=== PATIENT | female | born 1955 | race Caucasian/White ===

== ENCOUNTER 2025-04-26 12:51 | Inpatient (IN) | payer MEDICARE, SELFPAY ==
[2025-04-26] VITALS (10 sets, daily range): BP systolic 104–166; BP diastolic 48–107; BMI 36.2
[2025-04-26 08:37] LABS: INR 1.84; PT 21.4 Sec (11.4-14.6)
[2025-04-26] MEDS: TYLENOL 650 MG PO ×2 (08:37→18:20)
[2025-04-26 08:38] LABS: APTT 31.1 Sec (23.4-35.0)
[2025-04-26 08:44] LABS: Hematocrit 27.0 % (37.0-47.0); Hemoglobin 7.7 g/dL (12.0-16.0); Mean Corp Hgb Conc. 28.5 g/dL (33.0-37.0); Mean Corpuscular Volume 71.8 fL (81.0-99.0); Platelet Count 349 10^3/uL (130-400); Red Cell Dist. Width 19.9 % (11.5-14.5)
--- NOTE | 2025-04-26 08:52 | ED.GENMED ---
History of Present Illness
General
Chief Complaint: Breathing Problem
Source: patient and family (Daughter)
Time Seen by Provider: 04/26/25 07:35
History of Present Illness
History of Present Illness:
70-year-old female shortness of breath with exertion. Has been going on for months. Initially felt to be secondary to anemia. Was admitted at [facility] and found to have an ulcer. Hemoglobin has gone from 6 to the 8 range. [place] somewhat improved at
that time. However shortness of breath has persisted and gotten worse. Had a repeat hemoglobin done yesterday that was 8+ and patient was advised to have reevaluation for symptoms.
Past History
Past History
ED Past Medical History: Arrthythmia, CVA, Hypercholesterolemia, Valvular disease and Other (Gastric ulcer)
ED Past Surgical History: Orthopedic
Review of Systems
Review of Systems
All Other Systems: Not applicable
Constitutional: Denies fever
Cardiac: Denies chest pain, palpitations or syncope
Phy Exam
Physical Exam
Physical Exam:
GENERAL: Alert and oriented in no apparent distress
EYE: Orbits normal.
NECK: Supple, no significant adenopathy.
ENT: Pharynx without erythema
CARDIAC: Regular rate and rhythm without any obvious murmurs.
LUNGS: No respiratory distress. A few crackles in the bases.
ABDOMEN: Soft, without focal tenderness or distention. Stool heme-negative
NEUROLOGICAL: Alert and oriented , grossly non-focal
SKIN: Warm and dry, no rash or lesion, no discoloration, skin intact.
MUSCULOSKELETAL: No edema,no deformity.Good color
PSYCH: Normal and appropriate interaction.
Scores
Heart Failure Risk
Heart Failure Risk Score: Yes
History of Stroke or TIA: No
History of intubation for respiratory distress: No
Heart rate on ED arrival >/= 110: No
SaO2 <90% on arrival on room air: No
HR >/=110 during 3min walk test (or too ill to perform test): Yes
ECG has acute ischemic changes: No
Urea >/=12mmol/L (BUN 33.6mg/dL): No
Serum CO2>/=35mmol/L: No
Troponin I or T elevated to MO Level (0.4mg/dL): No
NT-proBNP >/=5,000ng/L (5,000pg/ml): No
HF Risk Score: 2
Admission Status: MEDIUM RISK 9.2% Consider observation or discharge to home with homecare & f/u visit to PCP/Forensic Materials Engineer, or SNF for treatment
Course
Orders/Labs/Results
Orders:
Orders
04/26/25 07:57
Electrocardiogram (*1) Stat
Reason for Study: Other
Other Reason for Exam: chest pain
Cardiac Monitoring- Treatment ONCE
EKG- Treatment ONCE
IV Insert/Care/Rem.- Treatment PRN
CR Chest - 2 Views Urgent
Comment:
Reason For Exam: sob
Pulse Ox/cont/shift [RESP] Stat
Quantity: 1
04/26/25 08:20
Type+Screen Urgent
Complete Blood Count/With Diff Urgent
Comprehensive Metabolic Panel Urgent
NT-proBNP Urgent
PTT Urgent
Prothrombin Time Urgent
Troponin I Urgent
04/26/25 08:35
Acetaminophen [Tylenol] 650 mg .ROUTE .STK-MED ONE
04/26/25 08:37
Acetaminophen [Tylenol] 650 mg PO NOW STA
04/26/25 10:05
CT Chest PE Study Urgent
Comment:
Reason For Exam: Progressive shortness of breath
04/26/25 11:46
Furosemide [Lasix] 20 mg IV NOW STA
04/26/25 11:47
* Blood Bank Products Routine
Blood Bank Products: *Packed RBC Leuko (PRBC's
Quantity: 1
Transfuse Today: Yes
Reason: Anemia
IV Insert/Care/Rem.- Treatment PRN
Abnormal Lab Results
04/26/25
08:20
RBC 3.76 L 10^6/uL
(4.20-5.40)
Hgb 7.7 L g/dL
(12.0-16.0)
Hct 27.0 L %
(37.0-47.0)
MCV 71.8 L fL
(81.0-99.0)
MCH 20.5 L pg
(27.0-31.0)
MCHC 28.5 L g/dL
(33.0-37.0)
RDW 19.9 H %
(11.5-14.5)
Absolute Monos (auto) 0.7 H 10^3/uL
(0.1-0.6)
PT 21.4 H Sec
(11.4-14.6)
Chloride 109 H mmol/L
(98-107)
Glucose 122 H mg/dl
(70-99)
04/26/25 08:20
04/26/25 08:20
Vital Signs
Initial and Last Documented VS:
Initial Vital Signs
Temp Pulse Resp BP Pulse Ox
98.0 F 75 16 166/107 98
04/26/25 07:24 04/26/25 07:24 04/26/25 07:24 04/26/25 07:24 04/26/25 07:24
Last Documented Vital Signs
Temp Pulse Resp BP Pulse Ox
98.0 F 69 18 145/79 95
04/26/25 07:24 04/26/25 10:00 04/26/25 09:30 04/26/25 10:00 04/26/25 10:00
MDM/Problems Addressed
Differential Diagnosis Includes:
Significant shortness of breath with exertion. Possible etiologies would include the anemia although patient's breathing is worse than when she left the hospital and the hemoglobin is in the same ballpark range. Heart failure, valvular issue,
ischemic heart disease. Workup in progress.
*Radiology
Radiology exam reviewed: radiology read reviewed (Mild cephalization) and other (No pulmonary emboli. Vascular congestion. Coronary artery calcifications. Thyroid nodule)
*Pulse Oximetry
SaO2: 94
Oxygen Mode of Delivery: Room air
Patient hypoxic: no
*EKG
Interpreted by ED Provider?: Yes
Interpretation: normal
Comparison EKG: no comparison EKG present
Heart Rate: 71
Rate: normal
Rhythm: sinus
[place]: normal axis
Interval: normal interval
QRS Pattern: normal QRS
Ischemia: no ischemia
*Critical Care Note
Total Time (30-74mins, 75-104mins- exclusive of procedures): Not Applicable
Data Reviewed
Review of Other/Old Records Reveals: Labs and Testing
Update Note
Update Note:
Patient's anemia is in the same ballpark range initially when she left hand. At that time her shortness of breath was less severe. Progressive shortness of breath with exertion. Echo at the end of March was stable. Possibly this is all
related to the anemia however would also have to consider ischemic heart disease. Will get a CT to rule out PE with a subtherapeutic INR and admit for further workup
Patient will be admitted. Will give a dose of Lasix prior to a unit of blood. Consent was signed. Will give the blood slowly.
ED Attending Note
-
Portions of this chart may have been created with voice recognition software.� Occasional wrong word or��sound alike� substitutions may have occurred due to the inherent limitations of voice recognition software.
Discharge Plan
Departure
Patient Disposition: Admit
Date of Disposition: 04/26/25
Time of Disposition: 11:15
Presentation/result/management discussed w/ accepting MD/DO: Hospitalist
Discharge Problem:
Progressive dyspnea on exertion
Prescriptions:
No Action
warfarin 5 mg tablet
15 mg PO DAILY
omeprazole 20 mg capsule,delayed release(DR/EC)
40 mg PO BID
metoprolol succinate 25 mg tablet extended release 24 hr
12.5 mg PO BID
escitalopram oxalate 20 mg tablet
20 mg PO DAILY
bupropion HCl 300 mg tablet extended release 24 hr
300 mg PO DAILY
Theragen Tablet
1 tab PO DAILY
aspirin 81 mg Tablet,Delayed Release (Dr/Ec)
81 mg PO DAILY
Referrals:
UNKNOWN - PT DOES,NOT KNOW [Family Provider]
Interventions
Interventions:
*Risk Screen - Suicide Last Done: 04/26/25 07:24
*General Assessment Last Done: 04/26/25 07:43
*Neglect/Abuse Screening Last Done: 04/26/25 07:24
*ED- Fall Risk Assessment Last Done: 04/26/25 07:43
*ED COVID-19 Vaccine History Last Done: 04/26/25 07:43
*ED Influenza Vaccine History Last Done: 04/26/25 07:43
ED- Cardiac Assessment Last Done: 04/26/25 07:43
ED- Pulmonary Assessment Last Done: 04/26/25 07:43
Discharge Date and Time
Print Language: BULGARIAN
[2025-04-26 09:16] LABS: Troponin I 0.014 ng/ml
[2025-04-26 09:32] LABS: ALT (SGPT) 34 U/L (0-35); AST (SGOT) 34 U/L (14-36); Albumin 3.7 g/dl (3.5-5.0); Alkaline Phosphatase 78 U/L (38-126); Blood Urea Nitrogen 16 mg/dl (7-17); Calcium 8.9 mg/dl (8.4-10.2); Carbon Dioxide 26 mmol/L (22-30); Chloride 109 mmol/L (98-107); Glucose 122 mg/dl (70-99); Potassium 4.2 mmol/L (3.5-5.1); Sodium 137 mmol/L (135-145); Total Protein 6.8 g/dl (6.3-8.2); eGFR > 60.00
[2025-04-26 09:59] LABS: Nucleated Red Blood Cells % 0 %
[2025-04-26] MEDS: LASIX 20 MG IV ×2 (12:00→21:42)
--- NOTE | 2025-04-26 12:00 | HPS.HSE ---
Addendum entered and electronically signed by Samantha Nuñez MD 04/26/25 12:52:
*patient ordered for 1 unit PRBC in ER
Original Note:
Family Physician
-
Family Physician: NOT KNOW UNKNOWN - PT DOES
Chief Complaint
-
shortness of breath
History of Present Illness
Ms. Cathryn Russell is a 70 yo woman with hx mitral valve replacement (HUP), atrial fibrillation on Coumadin, GERD/ PUD, depression, recent work up of shortness of breath where found to be anemic (s/p admission with EGD showing bleeding ulcers)
represents to the ER with return of shortness of breath.
Patient started to have shortness of breath in December and was initially referred for a stress test but couldn't complete secondary to severe shortness of breath. She was referred for cath, but lab work at that time showed anemia with Hg 6. She was
admitted to [facility]. Prior to this hospitalization she noticed black stools once but thought it was from something she ate. She received PRBC and shortness of breath improved. EGD revealed bleeding ulcers. Patient states at time of discharge for
HUP her Hg was over 8 and she hasn't had repeat since. Over past several days her shortness of breath has returned. She reports seeing some bright red streaks on toilet paper but couldn't see any black stools or bloody BM in toilet. She has also
had return of mid epigastric pain. No nausea/vomiting/diarrhea.
No fevers/chills. She reports slight chest discomfort. Mild lower extremity swelling.
She is on Coumadin for afib. She does not take NSAIDS, no significant alcohol use.
Medical History
Past Medical History
Past Medical History: Reports Other (mitral valve replacement (HUP), atrial fibrillation on Coumadin, GERD/ PUD, depression)
Past Surgical History: Reports Cardiac (mitral valve replacement) and Orthopedic
Social History
Tobacco: Former Smoker
Family History
Family History: Not pertinent
Allergies / Home Medications
Allergies reflects when Allergies were last updated in [employer].
Home Medications with original date entered in [employer]
Allergy/Medication List:
Allergies
Allergy/AdvReac Type Severity Reaction Status Date / Time
aspartame Allergy Unknown Verified 04/26/25 07:33
Penicillins Allergy Shortness Verified 04/26/25 07:33
of Breath
Home Medications
aspirin 81 mg tablet,delayed release 81 mg PO DAILY 04/26/25
bupropion HCl 300 mg 24 hr tablet, extended release 300 mg PO DAILY 04/26/25
escitalopram oxalate 20 mg tablet 20 mg PO DAILY 04/26/25
metoprolol succinate 25 mg tablet,extended release 24 hr 12.5 mg PO BID 04/26/25
omeprazole 20 mg capsule,delayed release 40 mg PO BID 04/26/25
therapeutic multivitamin 1 tab PO DAILY 04/26/25
warfarin 5 mg tablet 15 mg PO DAILY 04/26/25
Review of Systems
-
History Source: Patient
A 12 point ROS was completed and negative except as noted: Yes
Physical Exam
Vital Signs
Vital Signs
Temp Pulse Resp BP Pulse Ox
98.0 F 69 18 145/79 95
04/26/25 07:24 04/26/25 10:00 04/26/25 09:30 04/26/25 10:00 04/26/25 10:00
Physical Exam
General: No Apparent Distress
HEENT: PERRLA
Respiratory: Clear; No Wheezes
Cardiac: S1/S2 and Murmur; No JVD
GI: Soft and Non Tender
Musculoskeletal: No Edema
Skin: Warm and Dry; No Rash
Psych: Calm
Laboratory Results
-
04/26/25 08:20
04/26/25 08:20
Laboratory Results
PT 21.4 Sec (11.4-14.6) H 04/26/25 08:20
INR 1.84 04/26/25 08:20
APTT 31.1 Sec (23.4-35.0) 04/26/25 08:20
Total Bilirubin 0.4 mg/dl (0.2-1.3) 04/26/25 08:20
AST 34 U/L (14-36) 04/26/25 08:20
ALT 34 U/L (0-35) 04/26/25 08:20
Alkaline Phosphatase 78 U/L (38-126) 04/26/25 08:20
Troponin I 0.014 ng/ml 04/26/25 08:20
Data Reviewed
-
Diagnostic Radiology: Report Reviewed by me
Lab Data: Labs Reviewed by me
Impression/Plan
-
Ms. Cathryn Russell is a 70 yo woman with hx mitral valve replacement (HUP), atrial fibrillation on Coumadin, GERD/ PUD, depression, recent work up of shortness of breath where found to be anemic (s/p admission with EGD showing bleeding ulcers)
represents to the ER for shortness of breath with outpatient blood work showing Hg 8.3.
Triage VS: T 98, P 75, RR 16, BP 166/107 --> 145/79, SpO2 98%
LABS: WBC 7.8, Hg 7.7, PLT 349, Na 137, K+ 4.2, CO2 26, BUN 16, Cr 0.8, Ca 8.9, T. Bili 0.4 , AST 34, ALT 34, Alk Phos 78, Trop 0.014, BNP 902
INR 1.84
CXR
IMPRESSION:
Findings suggestive of mild central pulmonary vascular congestion.
CHEST CT
IMPRESSION:
1. No evidence of pulmonary embolism or thoracic aortic dissection.
2. Findings suggestive of mild pulmonary edema.
3. Moderate coronary arterial calcification. Please correlate with symptoms of and risk factors for coronary artery disease, with further workup as clinically appropriate.
4. Mild dilation of the main pulmonary trunk, a nonspecific finding which may be seen in the setting of pulmonary arterial hypertension.
5. Small hiatal hernia.
6. Enlarged, multinodular thyroid gland. Consider nonemergent thyroid ultrasound for further characterization.
Heart Failure Unknown EF, Acute Exacerbation
-admit to telemetry
-s/p Lasix 20mg IV x 1 in ER, continue BID
-TTE
-strict I/O, daily weights
-trend Troponin
-Cardiology consult
Anemia, iron deficiency anemia
Symptomatic Anemia
Recent diagnosis PUD with bleeding ulcers
-with return of abdominal pain and drop in Hg over past several days, may have recurrence of ulcer
-IV Protonix BID
-trend Hg (with Troponin)
-clears, NPO after MN
-GI consulted
Mitral Valve Replacement
Bioprosthetic valve
Atrial Fibrillation on Coumadin
-hold coumadin in setting of possible bleed and need for procedure
-patient interested in transitioning to Eliquis (CM consult in)
-[employer] Metoprolol
Depression
-TECH[employer]IATE Wellbutrin, Lexapro
DVT PPx SCD
FULL CODE
76 minutes spent on patient care
[2025-04-26] MEDS: NSS (PRESERVATIVE FREE) 10 ML IV ×2 (13:24→21:11)
[2025-04-26] MEDS: PROTONIX IV 40 MG IV ×2 (13:30→21:11)
[2025-04-26 13:36] LABS: Iron 29 ug/dl (37-170)
[2025-04-26 13:45] LABS: Total Iron Binding Capacity 453 ug/dl (265-497)
[2025-04-26 14:07] LABS: Ferritin 8.1 ng/ml (11.1-264.0)
--- NOTE | 2025-04-26 14:27 | CON.GI ---
Addendum entered and electronically signed by Cathryn Reva DO Arielle 04/26/25 16:30:
The patient was seen and examined by me independently in collaboration with the nurse practitioner.
Past medical history/social history/medications/allergies/family history reviewed.
Lab data and imaging data reviewed.
Cathryn Russell is a 70 y.o. female w/ pmhx rheumatic mitral valve disease s/p MVR, afib on warfarin and recent hospitalization at [facility] for GI bleeding admitted with worsening SOB, hemoglobin found to be 7.7, MCV 72, plt 349, BUN 16. Clinical exam
and imaging consistent with volume overload and likely new heart failure, getting diuresed. GI is consulted for anemia and abdominal pain. She reports having EGD and Colonoscopy at [facility] during recent admission and told she had 'bleeding ulcers.' She
followed up GI upon discharge, Dr. Cantu, discussed performing capsule. I reviewed EGD/Colonoscopy reports 2-4 mm erosions w/ no bleeding or stigmata of recent bleeding in antrum, biopsies positive for H. pylori. Single nonbleeding AVM in the colon.
5 mm polyp in the cecum, 5 mm polyp in the AC. Diverticulosis in sigmoid colon. Internal hemorrhoids. Hgb at discharge was 8. She reports some bright red blood with wiping on a few occasions, no melena. She has some mild pain in her midabdomen,
feels this was similar to her 'bleeding ulcers.' She was treated for her H.pylori, was able to show me proof of eradication testing which was negative.
-Acute on chronic anemia-- reviewed recent endoscopy reports. while she does have erosive gastropathy and H. pylori can give you MILLIE, I do not feel this was the source of her anemia, likely small bowel source, high likelihood of small bowel
angioectasias. She has one small colonic AVM, but per reports, not felt to be the source and was not treated
-Hgb similar to prior at time of d/c
-Iron 29, %sat 6, Ferritin 8, will give a dose of IV iron
-currently on coumadin, INR 1.84
-PPI BID
-If hemoglobin remains stable without signs of active GI bleeding, recommend outpatient f/u with her GI doctor for VCE for small bowel evaluation
Original Note:
Consultation
-
Date/Time Consultation Requested: 04/26/25 1230
Date/Time Consultation Performed: 04/26/25 1430
Requesting Provider: Samantha Nuñez MD
Performing Provider: JEAN-PIERRE Valentin, Lidia Guzmán DO
Reason for Consultation: anemia
Medical History
Chief Complaint / HPI
History of Present Illness:
Pt is 70yo presents with hx MVR 2022, valvuloplasty 2018, afib on coumadin, GERD, CVA, depression, obesity, recent GI bleeding and anemia since December, PUD, H pylori with recent treatment. In review with patient she was noted with increased
shortness of breath while on trip in December. She then had eventual work up cardiology but ended up admitted to [facility] in February with hbg 6.9 and completed GI work up. EGD - [facility] medium superficial scars in duodenal bulb, multiple dispersed 2-4
mm erosions with no bleeding and no sigmata of recent bleeding + Hpylori 02/07/25 colonoscopy- [facility]- single non bleeding cecal angioectasia 5 mm polyp in cecum, 5 mm polyp AC diverticulosis, sigmoids, IH. She was noted with + hyplori with treatment
and post testing was negative for eradication. She now was called as hbg still low and 8.3 and presents to ER. She is now noted with hbg 7.7 with some abdominal pain and concern for CHF exacerbation. stool heme neg in ER. She did have follow up
with GI -Dr. Cantu after [facility] admission and discussed capsule but did not set up.
In review with patient she admits to periods of vomiting at time. She will see occasional large amount of non bloody emesis. She also admits to abdominal pain worse with eating and acidic food, better on Omeprazole. Shr recently noted some
red blood with wiping and black stool after eating blackberries prior to [facility] admission. denies odynophagia, dysphagia, or GERD(stable on PPI but was off 2 weeks with H pylori testing with some symptoms).
prior hbg --8/- 6.9, 02/08 8.0 04/25 8.3
Past Medical History
Past Medical History: Arrhythmias (afib ), CAD, CVA (right RCA 2019), GERD, Valvular Disease, Psychiatric (depression) and Other (PUD, recent H pylori with treatment, GI bleeding, anemia, obesity)
Past Surgical History: Cardiac (MVR 2022 at [facility], prior valvuloplasty 2018) and Orthopedic
Social History
Tobacco: Non-Smoker
Alcohol: None
Drug: Other (gummies at night )
Living: Alone
Employment: Retired
Family History
Family History: Other (paternal GF with colon CA)
Allergies / Home Medications
Allergy/AdvReac Type Severity Reaction Status Date / Time
aspartame Allergy Unknown Verified 04/26/25 07:33
Penicillins Allergy Shortness Verified 04/26/25 07:33
of Breath
�Medication �Instructions �Recorded
aspirin 81 mg tablet,delayed 81 mg PO DAILY 04/26/25
release
bupropion HCl 300 mg 24 hr tablet, 300 mg PO DAILY 04/26/25
extended release
escitalopram oxalate 20 mg tablet 20 mg PO DAILY 04/26/25
metoprolol succinate 25 mg 12.5 mg PO BID 04/26/25
tablet,extended release 24 hr
omeprazole 20 mg capsule,delayed 40 mg PO BID 04/26/25
release
therapeutic multivitamin 1 tab PO DAILY 04/26/25
warfarin 5 mg tablet 15 mg PO DAILY 04/26/25
Review of Systems
-
History Source: Patient
Constitutional: Reports No Symptoms
EENT: Reports No Symptoms
Respiratory: Reports Trouble Breathing
Cardiac: Reports No Symptoms
Abdomen/GI: Reports Abdominal Pain, Nausea, Vomiting, Bloody Stools (recent x 1 ) and Black Stools (prior to [facility])
: Reports No Symptoms and Other (no urinary or vaginal bleeding)
Musculoskeletal: Reports No Symptoms
Skin: Reports No Symptoms
Neurological: Reports Weakness
Endocrine: Reports No Symptoms
Hematologic/Lymphatic: Reports No Symptoms
Vital Signs
Temp Pulse Resp BP Pulse Ox
98.0 F 75 20 111/51 95
04/26/25 07:24 04/26/25 12:45 04/26/25 12:45 04/26/25 12:02 04/26/25 12:45
Physical Exam
Exam
General: Well Developed, Well Nourished and No Apparent Distress
HEENT: Normocephalic and Anicteric
Respiratory: Clear
Cardiac: Regular Rhythm
GI: Soft, Non Tender and Non Distended
Rectal: Other (heme neg in ER)
Musculoskeletal: No Clubbing and No Cyanosis
Skin: Warm and Dry
Neuro: Awake, Alert and AO x 3
Psych: Calm
Results
WBC 7.8 10^3/uL (4.8-10.8) 04/26/25 08:20
Hgb 7.7 g/dL (12.0-16.0) L 04/26/25 08:20
Hct 27.0 % (37.0-47.0) L 04/26/25 08:20
MCV 71.8 fL (81.0-99.0) L 04/26/25 08:20
Plt Count 349 10^3/uL (130-400) 04/26/25 08:20
Absolute Neuts (auto) 5.1 10^3/uL (1.4-6.5) 04/26/25 08:20
PT 21.4 Sec (11.4-14.6) H 04/26/25 08:20
INR 1.84 04/26/25 08:20
APTT 31.1 Sec (23.4-35.0) 04/26/25 08:20
Sodium 137 mmol/L (135-145) 04/26/25 08:20
Potassium 4.2 mmol/L (3.5-5.1) 04/26/25 08:20
Chloride 109 mmol/L (98-107) H 04/26/25 08:20
Carbon Dioxide 26 mmol/L (22-30) 04/26/25 08:20
BUN 16 mg/dl (7-17) 04/26/25 08:20
Creatinine 0.8 mg/dL (0.6-1.0) 04/26/25 08:20
Calcium 8.9 mg/dl (8.4-10.2) 04/26/25 08:20
Total Bilirubin 0.4 mg/dl (0.2-1.3) 04/26/25 08:20
AST 34 U/L (14-36) 04/26/25 08:20
ALT 34 U/L (0-35) 04/26/25 08:20
Alkaline Phosphatase 78 U/L (38-126) 04/26/25 08:20
Diagnostic Image Results:
04/26/25 CT Chest PE Study
1. No evidence of pulmonary embolism or thoracic aortic dissection.
2. Findings suggestive of mild pulmonary edema.
3. Moderate coronary arterial calcification. Please correlate with symptoms of and risk factors for coronary artery disease, with further workup as clinically appropriate.
4. Mild dilation of the main pulmonary trunk, a nonspecific finding which may be seen in the setting of pulmonary arterial hypertension.
5. Small hiatal hernia.
6. Enlarged, multinodular thyroid gland. Consider nonemergent thyroid ultrasound for further characterization.
Prior GI Procedures:
EGD: - [facility] medium superficial scars in duodenal bulb, multiple dispersed 2-4 mm erosions with no bleeding and no sigmata of recent bleeding + Hpylori
Colonoscopy: 02/07/25 - [facility]- single non bleeding cecal angioectasia 5 mm polyp in cecum, 5 mm polyp AC diverticulosis, sigmoids, IH. She was noted with + hyplori
Assessment / Plan
-
Pt is 70yo presents with hx MVR 2023, valvuloplasty 2018, afib on coumadin, GERD, CVA, depression, obesity, recent GI bleeding and anemia since December, PUD, H pylori with recent treatment. In review with patient she was noted with increased
shortness of breath while on trip in December. She then had eventual work up cardiology but ended up admitted to [facility] in February with hbg 6.9 and completed GI work up. EGD - [facility] medium superficial scars in duodenal bulb, multiple dispersed 2-4
mm erosions with no bleeding and no sigmata of recent bleeding + Hpylori 02/07/25 colonoscopy- [facility]- single non bleeding cecal angioectasia 5 mm polyp in cecum, 5 mm polyp AC diverticulosis, sigmoids, IH. She was noted with + hyplori with treatment
and post testing was negative for eradication. She now was called as hbg still low and 8.3 and presents to ER. She is now noted with hbg 7.7 with some abdominal pain and concern for CHF exacerbation. stool heme neg in ER. She did have follow up
with GI -Dr. Cantu after [facility] admission and discussed capsule but did not set up. In review with patient she admits to periods of vomiting at time. She will see occasional large amount of non bloody emesis. She also admits to abdominal pain worse
with eating and acidic food, better on Omeprazole. Shr recently noted some red blood with wiping and black stool after eating blackberries prior to [facility] admission. denies odynophagia, dysphagia, or GERD(stable on PPI but was off 2 weeks with H
pylori testing with some symptoms).
-persistent microcytic iron deficient anemia (iron 29, TIBC 452, % sat 6, ferritin 8.1) - heme neg in ER
-abdominal pain
-occasional vomiting
-recent GI bleeding with multiple erosions, H pylori + s/p treatment with eradication, non bleeding cecal angioectasia, polyps, diverticulosis, IH
-heart failure acute exacerbation
other med problems:
MVR 2022, valvuloplasty 2019, afib on Coumadin, GERD, CVA, depression, obesity
PLAN:
etiology of persistent anemia related to slow GI bleed (SB ectasia vs other )though heme neg in ER vs other
cont to treat heart failure
s/p 1 unit transfused
if hbg improved and no signs of active bleeding discussed with her OP follow up at [facility] for OP capsule if decreased consider enteroscopy
trend hbg
cont Protonix BID
as heme neg ok for diet for dinner
IV iron
abdominal pain may have been related to recent stopping of PPI with H pylori testing
unclear etiology of occasional non blood vomiting episodes
appreciate cards input
-
-
Thank you for consultation and allowing me to participate in the patient's care. Please call the construction rep GI physician during the after hours with any questions or concerns.
--- NOTE | 2025-04-26 14:30 | CON.CAR ---
Consultation
Consultation Request
Date/Time Consultation Requested: April 26, 2025 1 PM
Date/Time Consultation Performed: April 26, 2025 2:30 PM
Requesting Provider: Hospitalist
Performing Provider: Alon Man
Reason for Consultation: Shortness of breath concern for heart failure
Medical History
-
Chief Complaint: Shortness of breath
History of Present Illness:
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 pylori, A-fib on warfarin, who is here for
worsening shortness of breath. She tells me that over the last week or 2 she has noticed worsening shortness of breath especially with exertion. Over the last day or 2 if gone to a point where she can only walk maybe 30 to 40 feet without having
to stop and catch her breath. Additionally, she had felt some shortness of breath while talking. She then decided to come to the emergency room.
In the emergency room she was found to have some pulmonary edema on CT of her chest. She had received IV Lasix and is getting a unit of blood.
Past Medical History
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 pylori, A-fib on warfarin)
Past Surgical History: Other (MVR orthopedidc )
Social History
Tobacco: Former Smoker
Employment: Retired
Family History
Family History: Reviewed & Not Pertinent
Allergies / Home Medications
Allergy/AdvReac Type Severity Reaction Status Date / Time
aspartame Allergy Unknown Verified 04/26/25 07:33
Penicillins Allergy Shortness Verified 04/26/25 07:33
of Breath
�Medication �Instructions �Recorded �Confirmed �Type
aspirin 81 mg tablet,delayed 81 mg PO DAILY 04/26/25 04/26/25 History
release
bupropion HCl 300 mg 24 hr tablet, 300 mg PO DAILY 04/26/25 04/26/25 History
extended release
escitalopram oxalate 20 mg tablet 20 mg PO DAILY 04/26/25 04/26/25 History
metoprolol succinate 25 mg 12.5 mg PO BID 04/26/25 04/26/25 History
tablet,extended release 24 hr
omeprazole 20 mg capsule,delayed 40 mg PO BID 04/26/25 04/26/25 History
release
therapeutic multivitamin 1 tab PO DAILY 04/26/25 04/26/25 History
warfarin 5 mg tablet 15 mg PO DAILY 04/26/25 04/26/25 History
Review of Systems
-
All other systems: Negative unless noted
Physical Exam
Vital Signs
Temp Pulse Resp BP Pulse Ox
98.0 F 75 20 111/51 95
04/26/25 07:24 04/26/25 12:45 04/26/25 12:45 04/26/25 12:02 04/26/25 12:45
Lab Results
04/26/25 08:20
04/26/25 08:20
Troponin I 0.014 ng/ml 04/26/25 08:20
Mwo-L-Qivcospndcd Pept 902 pg/ml 04/26/25 08:20
Physical Exam
General: Well Developed and Well Nourished
HEENT: Normocephalic
Respiratory: Crackles and Non Labored Respirations
Cardiac: Regular Rhythm
GI: Soft
Skin: Warm and Dry
Neuro: AO x 3
Psych: Calm
Impression / Plan
-
A/P: 70-year-old female with past medical history of rheumatic mitral valve disease status post MVR, nonobstructive CAD, A-fib on warfarin, POD with H. pylori and recent GI bleed who is here for evaluation of shortness of breath.
Shortness of breath likely multifactorial in the setting of anemia and HFpEF
- Agree with IV diuresis
- Agree with PRBCs
- GI eval
HFpEF and MVR
- Update echo
- Agree with IV Lasix
- Will stephens out SGLT2 inhibitor
Nonobstructive CAD
- Continue aspirin unclear why she is not on a statin
We will continue to follow
Data Reviewed
-
EKG: Tracing Personally Visualized and interpreted
Radiology: Report Reviewed by me
Labs: Labs Reviewed by me
[2025-04-26 16:17] LABS: Hematocrit 29.6 % (37.0-47.0); Hemoglobin 8.5 g/dL (12.0-16.0)
[2025-04-26 16:26] LABS: Troponin I < 0.012 ng/ml
--- NOTE | 2025-04-26 19:23 | PTCARENOTE ---
Received pt from ED into room 407-1. Pt AAOx3. VSS. Ambulatory to bed with assist x1. Labs drawn, hgb 8.5. 1 unit PRBCs ordered and administered. Pt tolerated well, no signs of adverse reaction. Educated pt on use of call grimaldo for assistance, pt
states understanding. Pt has no complaints at this time, resting comfortably in bed.
[2025-04-26] MEDS: TOPROL XL 12.5 MG PO (21:13)
[2025-04-26 21:44] LABS: Hematocrit 28.1 % (37.0-47.0); Hemoglobin 8.4 g/dL (12.0-16.0)
--- NOTE | 2025-04-26 21:50 | W.PN.UPDATE ---
Update Note
Progress Note Update
RN reports patient complaining of chest pain x2, stable VS, EKG noted. Labs in place
patient seen and evaluated. Calm but anxious, states she is having mid chest pain, non radiating. States she always had this pain with her heart problems. stable VS
reports mild shortness of breath, worsens with ambulation. Lungs with rales, HR RR +BS 4 quad, voiding without difficulty
20mg IV Lasix/Maalox given.
requesting Lexapro at night, order placed.
concerned about not getting Coumadin. RN addressed the issue of low hgb. patient verbalized understanding for now. remains chest pain free overnight.
[2025-04-26 22:09] LABS: Troponin I 0.013 ng/ml
[2025-04-26] MEDS: LEXAPRO 20 MG PO (22:09)
[2025-04-26] MEDS: MAALOX 30 ML PO (23:15)
[2025-04-26] MEDS: MELATONIN 6 MG PO (23:22)
[2025-04-26 23:33] LABS: Blood Urea Nitrogen 22 mg/dl (7-17); Calcium 8.3 mg/dl (8.4-10.2); Carbon Dioxide 25 mmol/L (22-30); Chloride 105 mmol/L (98-107); Estimated Creatinine Clearance 70 ml/min; Glucose 157 mg/dl (70-99); Magnesium 1.9 mg/dl (1.6-2.3); Potassium 4.2 mmol/L (3.5-5.1); Sodium 137 mmol/L (135-145); eGFR > 60.00
--- NOTE | 2025-04-26 23:42 | PTCARENOTE ---
2 episodes of chest pain /pressure mid sternal. 2 ekg's done- inpatient nursing aide up to eval- ordered Lasix as pat had crackles at bases. 2 liters oxygen given as well also Maalox-labs drawn trops negative hgb 8.4 bmp/mag wnl- pt now feels better after Lasix/Maalox
--- NOTE | 2025-04-27 01:48 | PTCARENOTE ---
remains chest Pain fee- vitals wnl 98% on 2 liters - crackles at bases- fallon- sinus afebrile
[2025-04-27 03:25] VITALS: BP 113/57
--- NOTE | 2025-04-27 04:07 | PTCARENOTE ---
vital wnl afebrile , sinus 2 liters to maintain sats. pt remains chest pain free
[2025-04-27 06:00] VITALS: BMI 36.0
[2025-04-27 07:00] VITALS: BP 107/52
[2025-04-27 07:42] LABS: Hematocrit 32.5 % (37.0-47.0); Hemoglobin 9.2 g/dL (12.0-16.0); Mean Corp Hgb Conc. 28.3 g/dL (33.0-37.0); Mean Corpuscular Volume 74.9 fL (81.0-99.0); Platelet Count 363 10^3/uL (130-400); Red Cell Dist. Width 19.4 % (11.5-14.5)
[2025-04-27 07:48] LABS: INR 1.68; PT 20.3 Sec (11.4-14.6)
[2025-04-27 08:06] LABS: Blood Urea Nitrogen 18 mg/dl (7-17); Calcium 8.8 mg/dl (8.4-10.2); Carbon Dioxide 30 mmol/L (22-30); Chloride 105 mmol/L (98-107); Estimated Creatinine Clearance 70 ml/min; Glucose 109 mg/dl (70-99); HDL Cholesterol 71 mg/dl; LDL Cholesterol, Calculated 151 mg/dl; Magnesium 2.2 mg/dl (1.6-2.3); Potassium 4.5 mmol/L (3.5-5.1); Sodium 141 mmol/L (135-145); Very Low Density Lipoprotein 25 mg/dl (0-30); eGFR > 60.00
[2025-04-27 09:24] LABS: Troponin I < 0.012 ng/ml
[2025-04-27] MEDS: NSS (PRESERVATIVE FREE) IV (09:26)
[2025-04-27] MEDS: TOPROL XL 12.5 MG PO (09:26)
[2025-04-27] MEDS: WELLBUTRIN XL (24 hour extended release) 300 MG PO (09:26)
[2025-04-27] MEDS: ASPIR LOW (ENTERIC COATED) 81 MG PO (09:26)
[2025-04-27] MEDS: PROTONIX IV IV (09:26)
[2025-04-27] MEDS: LASIX IV (09:26)
--- NOTE | 2025-04-27 10:02 | W.PN.HOSP.TC ---
Today's Communication/Plan
-
see outlined plan below
Assessment / Plan
Assessment / Plan
Assessment:
Acute HFpEF
- continue Tele
- IV Lasix BID - requires intensive monitoring of I/Os, weights, lytes
- Echo
- continue BB
- stephens SGLT2
- CBC cards following
- sees [facility]
Symptomatic anemia
history of iron deficiency anemia
Recent diagnosis of PUD and H. pylori
- per GI notes; recent procedures revealed '2-4 mm erosions w/ no bleeding or stigmata of recent bleeding in antrum, biopsies positive for H. pylori. Single nonbleeding AVM in the colon. 5 mm polyp in the cecum, 5 mm polyp in the AC. Diverticulosis
in sigmoid colon. Internal hemorrhoids'
- continue PPI BID
- s/p 1 unit pRBC; Hb >9
- IV iron today; oral iron at discharge
- OP f/u GI [facility] for capsule study
Hx of bioMVR
parox A. Fib on Coumadin
- holding Coumadin; pricing Eliquis
- continue BB
Depression
- continue Lexapro/Wellbutrin
DVT ppx: SCDs
Code: Full
Anticipated Discharge: Within 24 hours
Subjective/Interval History
-
Date of Service: April 27, 2025
resting comfortably
denies SOB or chest pain
Hb 9.2
Objective Data
-
Labs:
Laboratory Results
04/26/25 04/27/25
23:11 06:47
WBC 7.6
Hgb 9.2 L
Hct 32.5 L
Plt Count 363
PT 20.3 H
INR 1.68
Sodium 137 141
Potassium 4.2 4.5
Chloride 105 105
Carbon Dioxide 25 30
BUN 22 H 18 H
Creatinine 0.8 0.8
Glucose 157 H 109 H
Calcium 8.3 L 8.8
Vital Signs:
Vital Signs
Temp Pulse Resp BP Pulse Ox
97.9 F 65 16 107/52 95
04/27/25 07:00 04/27/25 07:00 04/27/25 07:00 04/27/25 07:00 04/27/25 07:00
I&O
04/26/25 04/27/25 04/28/25
06:59 06:59 06:59
Intake Total 490 / 490
Balance 490 / 490
Physical Exam
-
General: No Apparent Distress
HEENT: Normocephalic and Atraumatic
Respiratory: Negative Wheezes
Cardiac: Regular Rhythm and S1/S2
GI: Soft
Musculoskeletal: No Edema
Hematologic / Lymphatic: No Lymphadenopathy
Psych: Calm
Data Reviewed
-
Total Time Spent with Patient (in minutes): 51
Labs: Labs Reviewed by me
--- NOTE | 2025-04-27 10:48 | CM ---
TC to [facility] [phone], spoke with Elías.
Patient has met yearly deductible, medications- Farxiga 10 mg, Jardiance 10 mg and Eliquis 5 mg PO BID will have no OOP costs thru 06/24/25. Yearly deductible starting Jul 2025 $420.
[2025-04-27 11:00] VITALS: BP 120/55
[2025-04-27] MEDS: PROTONIX IV 40 MG IV (11:33)
[2025-04-27] MEDS: NSS (PRESERVATIVE FREE) 10 ML IV (11:34)
--- NOTE | 2025-04-27 12:02 | PTCARENOTE ---
Pt is off the floor at this time for echo.
[2025-04-27] MEDS: LASIX 20 MG IV ×2 (12:51→17:47)
[2025-04-27] MEDS: FARXIGA 5 MG PO (12:52)
[2025-04-27] MEDS: FERRLECIT 110 MG IV (12:59)
--- NOTE | 2025-04-27 13:35 | W.PN.CD ---
Today's Communication / Plan
-
Farxiga 10 mg daily
Eliquis 5 mg bid for pAF
Lasix MWF 40 mg
OK to d/c this afternoon; she knows to follow up with home dye colorist dyer
Impression / Plan
-
A/P: 70-year-old female with past medical history of rheumatic mitral valve disease status post MVR, nonobstructive CAD, A-fib on warfarin, POD with H. pylori and recent GI bleed who is here for evaluation of shortness of breath.
Shortness of breath likely multifactorial in the setting of anemia and HFpEF
- IV diuresis today
- echo below
- start farxiga 10 mg
- much improved
HFpEF and MVR
- start farxiga 10 mg
- iv diuresis today
- lasix 40 mg MWF on d/c
pAF
- OK to start Eliquis 5 mg bid
Nonobstructive CAD
- Continue aspirin unclear why she is not on a statin
Physical Exam
Vital Signs/Labs
Vital Signs
Temp Pulse Resp BP Pulse Ox
97.8 F 72 16 120/55 94
04/27/25 11:00 04/27/25 11:00 04/27/25 11:00 04/27/25 11:00 04/27/25 11:00
04/26/25 04/27/25 04/28/25
06:59 06:59 06:59
Actual Weight 203 lb 1 oz
04/27/25 06:47
04/27/25 06:47
PT 20.3 Sec (11.4-14.6) H 04/27/25 06:47
INR 1.68 04/27/25 06:47
APTT 31.1 Sec (23.4-35.0) 04/26/25 08:20
Magnesium 2.2 mg/dl (1.6-2.3) 04/27/25 06:47
Triglycerides 127 mg/dl (10-149) 04/27/25 06:47
LDL Cholesterol, Calc 151 mg/dl 04/27/25 06:47
VLDL Cholesterol, Calc 25 mg/dl (0-30) 04/27/25 06:47
HDL Cholesterol 71 mg/dl 04/27/25 06:47
04/26/25
08:20
Zuh-I-Pjfuzldvvgx Pept 902
LAB Results
04/26/25 04/26/25 04/26/25
08:20 15:51 21:35
Troponin I 0.014 < 0.012 0.013
04/27/25
08:44
Troponin I < 0.012
Physical Exam
Constitutional: No acute distress and Comfortable
EENT: Anicteric
Cardiovascular: Rhythm & rate is regular and Pedal edema is absent
Respiratory: Respiratory effort normal and Lungs clear to auscul.
GI: Soft
Neuro/Psych: AO x 3
Data Reviewed
-
Date of Service: April 27, 2025
EKG: Tracing Personally Visualized and interpreted (sr)
Echo: Tracing Personally Visualized and interpreted
Labs: Labs Reviewed by me
--- NOTE | 2025-04-27 14:22 | CM ---
Addendum entered by Citlalli Cast 04/27/25 14:28:
Daughter will drive pt home.
Original Note:
Pt lives alone in a condo with an elevator to the 3rd level where resides.IMM giiven and placed on chart.Hx on VN with Rajeev. NO hx of DME, home O2 or SNF.No insecurities identified. Confirm,ed PCP, Rx Insurance and drug plan
Pt worked up for CHF. Anticipate discharge pending results of echocardiogram
Plan: DC to Home no needs
[2025-04-27 15:00] VITALS: BP 129/101
--- NOTE | 2025-04-27 15:18 | W.PN.GI.CBS2 ---
Today's Communication / Plan
-
Hgb stable up to 9.2
Agree with OP capsule endo with [facility]
Perhaps anemia due to H pylori infxn which was treated
Had recent EGD/colon
Will sign off.
Assessment / Plan
-
Pt is 70yo presents with hx MVR 2022, valvuloplasty 2018, afib on coumadin, GERD, CVA, depression, obesity, recent GI bleeding and anemia since December, PUD, H pylori with recent treatment. In review with patient she was noted with increased
shortness of breath while on trip in December. She then had eventual work up cardiology but ended up admitted to [facility] in February with hbg 6.9 and completed GI work up. EGD - [facility] medium superficial scars in duodenal bulb, multiple dispersed 2-4
mm erosions with no bleeding and no sigmata of recent bleeding + Hpylori 02/07/25 colonoscopy- [facility]- single non bleeding cecal angioectasia 5 mm polyp in cecum, 5 mm polyp AC diverticulosis, sigmoids, IH. She was noted with + hyplori with treatment
and post testing was negative for eradication. She now was called as hbg still low and 8.3 and presents to ER. She is now noted with hbg 7.7 with some abdominal pain and concern for CHF exacerbation. stool heme neg in ER. She did have follow up
with GI -Dr. Cantu after [facility] admission and discussed capsule but did not set up. In review with patient she admits to periods of vomiting at time. She will see occasional large amount of non bloody emesis. She also admits to abdominal pain worse
with eating and acidic food, better on Omeprazole. Shr recently noted some red blood with wiping and black stool after eating blackberries prior to [facility] admission. denies odynophagia, dysphagia, or GERD(stable on PPI but was off 2 weeks with H
pylori testing with some symptoms).
-persistent microcytic iron deficient anemia (iron 29, TIBC 452, % sat 6, ferritin 8.1) - heme neg in ER
-abdominal pain
-occasional vomiting
-recent GI bleeding with multiple erosions, H pylori + s/p treatment with eradication, non bleeding cecal angioectasia, polyps, diverticulosis, IH
-heart failure acute exacerbation
other med problems:
MVR 2022, valvuloplasty 2018, afib on Coumadin, GERD, CVA, depression, obesity
Subjective
Subjective
Date of Service: April 27, 2025
Denies complaints
Objective
Data Reviewed
Laboratory Data:
Laboratory Results
04/27/25 06:47
04/27/25 06:47
Laboratory Results
PT 20.3 Sec (11.4-14.6) H 04/27/25 06:47
INR 1.68 04/27/25 06:47
APTT 31.1 Sec (23.4-35.0) 04/26/25 08:20
Magnesium 2.2 mg/dl (1.6-2.3) 04/27/25 06:47
Total Bilirubin 0.4 mg/dl (0.2-1.3) 04/26/25 08:20
AST 34 U/L (14-36) 04/26/25 08:20
ALT 34 U/L (0-35) 04/26/25 08:20
Alkaline Phosphatase 78 U/L (38-126) 04/26/25 08:20
Vital Signs and I&O:
Vital Signs
Temp Pulse Resp BP Pulse Ox
97.8 F 72 16 120/55 94
04/27/25 11:00 04/27/25 11:00 04/27/25 11:00 04/27/25 11:00 04/27/25 11:00
I&O
04/26/25 04/27/25 04/28/25
06:59 06:59 06:59
Intake Total 490 / 490
Balance 490 / 490
Physical Exam
Physical Exam
GI: Soft, Non Distended and Non Tender
--- NOTE | 2025-04-27 16:31 | W.DCSUMMARY ---
Discharge Summary
Discharge Data
Date of Admission: 04/26/25
Date of Discharge: 04/27/25
-
Pending Results: No
Hospital Course
70 y/o F, history of MVR, Afib on Coumadin, GERD, CVA, depression, obesity, recent GI bleeding and anemia since December, PUD, H pylori with recent treatment presented to ER with SOB from anemia and acute CHF. She recently had EGD/Colon at [facility] which
showed 2-4 mm erosions w/ no bleeding or stigmata of recent bleeding in antrum, biopsies positive for H. pylori. Single nonbleeding AVM in the colon. 5 mm polyp in the cecum, 5 mm polyp in the AC. Diverticulosis in sigmoid colon. Internal
hemorrhoids. She is to have an outpatient capsule study. Her H. Pylori was eradicated. She is on PPI BID. She received 1 unit of blood, 1 bag of IV iron and will continue iron at home.
She was seen by Cardiology and received IV diuretics and was discharged on // Lasix dosing. Echo was normal.
She was discharged home 04/27/25.
Discharge Plan
-
Patient Disposition: Home (Routine Discharge)
Discharge Diagnosis/Procedures: anemia, acute CHF
Condition: Fair
Diet: Low Cholesterol and Low Sodium
Activity: As tolerated
Bathing Restrictions: None
Others Tests: outpatient capsule study with [facility]
Referrals:
UNKNOWN - PT DOES,NOT KNOW [Family Provider]
Prescriptions:
New
ferrous sulfate [FeroSul] 325 mg (65 mg iron) Tablet
325 mg PO DAILY Qty: 30 0RF
Eliquis 5 mg Tablet
5 mg PO BID Qty: 60 0RF
furosemide [Lasix] 40 mg tablet
40 mg PO DIRECTED Qty: 30 0RF
Rx Instructions:
on Wednesday, Wednesday, Wednesday
dapagliflozin propanediol 5 mg Tablet
10 mg PO DAILY Qty: 30 0RF
Continued
omeprazole 20 mg capsule,delayed release(DR/EC)
40 mg PO BID
metoprolol succinate 25 mg tablet extended release 24 hr
12.5 mg PO BID
escitalopram oxalate 20 mg tablet
20 mg PO DAILY
bupropion HCl 300 mg tablet extended release 24 hr
300 mg PO DAILY
Theragen Tablet
1 tab PO DAILY
aspirin 81 mg Tablet,Delayed Release (Dr/Ec)
81 mg PO DAILY
Discontinued
warfarin 5 mg tablet
15 mg PO DAILY
Discharge Orders:
Discharge Patient (As Directed); Ordered 04/27/25
Ordered By: Jonathan Lynn
Discharge Date and Time
Print Language: MAORI
[2025-04-27] MEDS: PREVNAR 20 0.5 ML IM (17:48)
[2025-04-27] MEDS: ELIQUIS 5 MG PO (17:48)
[2025-04-27] MEDS: FLUZONE HIGH-DOSE 2025-26 0.5 ML IM (17:50)
--- NOTE | 2025-04-27 18:00 | PTCARENOTE ---
IV discontinued. Tele pack removed. Discharge paperwork printed and reviewed with patient who verbalized understanding. Pt ambulated off the floor accompanied by her daughter with all belongings.
== END 2025-04-27 18:36 | disposition home or self-care (01) | DRG 811 ==
LOC: 4 EAST ACU 12:51
PROVIDERS: Nurse Practitioner Gerontology; ADMITTING PHYSICIAN Student in an Organized Health Care Education/Training Program; ATTENDING PHYSICIAN Internal Medicine; CONSULT PHYSICIAN Internal Medicine; CONSULT PHYSICIAN Internal Medicine Cardiovascular Disease; EMERGENCY PHYSICIAN Emergency Medicine
PROC: 30233N1 Transfusion of Nonautologous Red Blood Cells into Peripheral Vein, Percutaneous Approach (ICD-10-PCS; 2025-04-26)
PROC: 3E02340 Introduction of Influenza Vaccine into Muscle, Percutaneous Approach (ICD-10-PCS; 2025-04-27)
PROC: 3E0234Z Introduction of Serum, Toxoid and Vaccine into Muscle, Percutaneous Approach (ICD-10-PCS; 2025-04-27)
DX: D50.9 Iron deficiency anemia, unspecified (principal); I50.31 Acute diastolic (congestive) heart failure; E78.00 Pure hypercholesterolemia, unspecified; K21.9 Gastro-esophageal reflux disease without esophagitis; F32.A Depression, unspecified; K44.9 Diaphragmatic hernia without obstruction or gangrene; E04.2 Nontoxic multinodular goiter; I27.20 Pulmonary hypertension, unspecified; E66.9 Obesity, unspecified; I48.0 Paroxysmal atrial fibrillation; I25.10 Atherosclerotic heart disease of native coronary artery without angina pectoris; Z60.2 Problems related to living alone; Z86.73 Personal history of transient ischemic attack (TIA), and cerebral infarction without residual deficits; Z87.11 Personal history of peptic ulcer disease; Z79.01 Long term (current) use of anticoagulants; Z79.82 Long term (current) use of aspirin; Z87.891 Personal history of nicotine dependence; Z95.3 Presence of xenogenic heart valve; Z88.0 Allergy status to penicillin; Z88.8 Allergy status to other drugs, medicaments and biological substances; Z68.36 Body mass index [BMI] 36.0-36.9, adult; Z23 Encounter for immunization; Z80.0 Family history of malignant neoplasm of digestive organs; Z86.0100 Personal history of colon polyps, unspecified; Z87.19 Personal history of other diseases of the digestive system
CPT/HCPCS: 71046; 71275; 80048; 80053; 80061; 82728; 83540; 83550; 83735; 83880; 84443; 84484; 85014; 85018; 85025; 85027; 85610; 85730; 86850; 86870; 86880; 86900; 86901; 86920; 86922; 90662; 90677; 93005; 93306; 96374; 99285; G0008; G0009; J2916; P9016; Q9967